=== PATIENT | male | born 1975 | race Caucasian/White ===

== ENCOUNTER 2017-12-08 09:00 | Day surgery (SDC) | payer BC, OTHER ==
[2017-12-08] MEDS ORDERED: ONDANSETRON HCL INJ/PF 4 MG/2 ML SDV ONE (09:31)
[2017-12-08] MEDS ORDERED: NALOXONE HCL INJ/PF 0.4 MG/1 ML SDV ONE (09:31)
[2017-12-08] MEDS ORDERED: GLYCOPYRROLATE INJ 0.4 MG/2 ML VIAL ONE (09:31)
[2017-12-08] MEDS ORDERED: FLUMAZENIL INJ 0.5 MG/5 ML VIAL ONE (09:33)
[2017-12-08] MEDS ORDERED: EPINEPHRINE INJ 1 MG/10 ML DISP.SYRIN ONE (09:33)
[2017-12-08] MEDS ORDERED: GLUCAGON,HUMAN RECOMB 1 MG INJ ONE (09:33)
[2017-12-08 10:16] LABS: HEMATOCRIT 41.3 % (37.9-51.0); HEMOGLOBIN 14.1 g/dL (13.5-17.0); MEAN CORPUSCULAR HEMOGLOBIN 30.9 pg (27.0-33.4); MEAN CORPUSCULAR VOLUME 91 fl (80-97); PLATELET COUNT 177 10^3/uL (150-450); RED BLOOD COUNT 4.55 10^6/uL (4.35-5.55); WHITE BLOOD COUNT 7.3 10^3/uL (4.0-10.5)
[2017-12-08] MEDS: MIDAZOLAM 2 MG/2 ML INJ ONE ×3 (11:21→11:30)
[2017-12-08] MEDS: FENTANYL CITRATE INJ/PF 100 MCG/2 ML AMPUL ONE ×2 (11:24→11:32)
--- NOTE | 2017-12-08 12:21 | Operative Report ---
Operative Report DATE OF SURGERY: 12/08/17 PREOPERATIVE DIAGNOSIS: History of colon polyp. Family history. POSTOPERATIVE DIAGNOSIS: Sigmoid colon polyp OPERATION: Colonoscopy with cold polypectomy of sigmoid colon polyp SURGEON: PRINCESS KOENIG ANESTHESIA: Moderate Sedation TISSUE REMOVED OR ALTERED: Sigmoid colon polyp COMPLICATIONS: None ESTIMATED BLOOD LOSS: Minimal INTRAOPERATIVE FINDINGS: Diminutive polyp at the proximal sigmoid. PROCEDURE: Informed consent was obtained. Patient was brought to the endoscopy suite. IV sedation with Versed and fentanyl was administered. Digital rectal exam revealed no palpable perianal masses. Endoscope was passed via the patient's anus it was fed to the cecum. Bowel prep was good. Visualization was good. The cecum, right colon, transverse colon, descending colon were all normal with no polyps and no masses. At the very proximal sigmoid colon there was a diminutive polyp which was cold polypectomied. Remainder of the sigmoid colon appeared normal. As did the rectum. Patient tolerated procedure well with no apparent complications and was taken to the recovery area in stable condition. Small polyp at the proximal sigmoid colon status post successful cord polypectomy. Will follow up with the patient with the pathology report.
--- NOTE | 2017-12-08 12:25 | PDOC DISCHARGE SUMMARY ---
Discharge Summary (SDC) - Discharge Final Diagnosis: Colon polyp Date of Surgery: 12/08/17 Discharge Date: 12/08/17 Condition: Good Treatment or Instructions: Colonoscopy with cold polypectomy. May discharge patient home when met discharge criteria. Follow-up with me in 1-2 weeks. Referrals: STEW MORLEY MD [Primary Care Provider] - Discharge Diet: As Tolerated Discharge Activity: Activity As Tolerated Report the Following to Your Physician Immediately: Increase in Pain, Unusual Bleeding
[2017-12-08 12:56] VITALS: BP 117/70
== END 2017-12-08 12:55 | disposition home or self-care (01) ==
LOC: END 09:00
PROVIDERS: ATTEND Surgery
PROC: 0DBN8ZX Excision of Sigmoid Colon, Via Natural or Artificial Opening Endoscopic, Diagnostic (ICD-10-PCS; principal; 2017-12-08 10:30)
DX: Z12.11 Encounter for screening for malignant neoplasm of colon (principal); K63.5 Polyp of colon; Z80.0 Family history of malignant neoplasm of digestive organs; Z87.891 Personal history of nicotine dependence; Z86.010 Personal history of colon polyps
CPT/HCPCS: 45380; 36415; 85027; 88305 ×2; J2250; J3010; J0171; J1610; J2310; J2405; J3490